=== PATIENT | female | born 1950 | race Caucasian/White ===

== ENCOUNTER 2021-03-20 14:48 | Outpatient (CLI) | payer MEDICARE | END 2021-03-20 23:59 | disposition home or self-care (01) | LOC: RAD 14:48 | PROVIDERS: ATTEND Family Medicine | DX: Z45.2 Encounter for adjustment and management of vascular access device (principal); C85.90 Non-Hodgkin lymphoma, unspecified, unspecified site | CPT/HCPCS: 36573; C1751 ==